=== PATIENT | male | born 1945 | race African-American/Black ===

== ENCOUNTER 2021-09-15 12:46 | Inpatient (IN) ==
[2021-09-15] MEDS ORDERED: SODIUM CHLORIDE 0.9% 500 ML IV STA (14:20)
[2021-09-15 16:28] LABS: Bacteria,Urine Many /HPF (Few); Bilirubin,Urine Negative (Negative); Blood, Urine Large mg/dL (Negative); Glucose,Urine (UA) Negative (Negative); Ketones,Urine Negative (Negative); Mucus,Urine Many /LPF (Occasional); Nitrite,Urine Negative (Negative); Protein,Urine >=500 MG/DL; RBC,Urine 479 /HPF (0-4); Urine Appearance CLOUDY (Clear); Urine Color Yellow (Yellow); Urine Specific Gravity 1.005 (1.001-1.035); Urine Urobilinogen < 2.0 EU/DL (<2.0)
[2021-09-15 16:56] LABS: Basophils % 0.1 % (0.0-0.8); Hematocrit 35.5 VOL% (42.0-52.0); Hemoglobin 12.2 GM/DL (14.0-18.0); Immature Granulocytes % 0.8 %; Immature Granulocytes Absolute 0.11 #; Mean Corpuscular HGB Conc 34.4 GM/DL (32-36); Mean Corpuscular Volume 81.1 FL (87-102); Monocytes % 9.9 % (1.7-12.7); NRBC # 0.05 10*3/uL; Neutrophils % 82.2 % (38.7-73.9); Platelet Count 109 T/CUMM (130-400); Red Blood Count 4.38 MC/CUMM (3.8-5.5); Red Cell Distribution Width 20.7 % (9.3-17.3); White Blood Count 13.8 T/CUMM (4-12)
[2021-09-15 17:04] LABS: INR 1.4; PT Patient Result 15.5 SECS (10.5-12.0)
[2021-09-15] MEDS ORDERED: PIPERACILLIN/TAZOBACTAM 3,375 MG in SODIUM CHLORIDE 0.9% 100 ML IV STA (17:08)
[2021-09-15] MEDS ORDERED: GLUCAGON 1 MG VIAL IM PRN (19:50)
[2021-09-15] MEDS ORDERED: ACETAMINOPHEN 325 MG TABLET PO PRN (19:55)
[2021-09-15] MEDS ORDERED: ONDANSETRON 4 MG/2 ML VIAL IV PRN (19:55)
[2021-09-15] MEDS ORDERED: hydrALAZINE 20 MG/1 ML VIAL IV PRN (19:55)
[2021-09-15] MEDS ORDERED: DEXTROSE 10% 250 ML BAG IV PRN (20:14)
[2021-09-15 20:16] LABS: Albumin 2.2 G/DL (3.4-5.0); Bilirubin,Total 7.9 MG/DL (0.20-1.00); Calcium 7.2 MG/DL (8.5-10.1); Osmolality,Calculated 278.2 MOS/KG (273-304); Thyroid Stimulating Hormone 0.79 uIU/ml (0.358-3.74); Total Protein 7.3 G/DL (6.4-8.2)
[2021-09-15] MEDS: INSULIN LISPRO 100 UNIT/ML SUBCUT SCH (20:24)
[2021-09-15 20:35] LABS: Potassium 6.4 MMOL/L (3.5-5.1)
[2021-09-15] MEDS ORDERED: INSULIN REGULAR 10 UNIT, CALCIUM GLUCONATE 1,000 MG in DEXTROSE 10% 250 ML IV ONE (20:47)
[2021-09-15] MEDS ORDERED: SODIUM CHLORIDE 0.9% 1,000 ML IV STA ×2 (20:49→20:51)
[2021-09-15] MEDS ORDERED: SODIUM POLYSTYRENE SULFATE 15 GM/60 ML BOTTLE PO STA (20:54)
[2021-09-15] MEDS ORDERED: SODIUM BICARBONATE 50 MEQ/50 ML VIAL IV STA (20:58)
[2021-09-15] MEDS ORDERED: DOPamine 800 MG/250 ML PREMIX IV ONE (22:09)
[2021-09-15] MEDS ORDERED: DOPamine 800 MG/250 ML PREMIX IV PRN (22:10)
[2021-09-15 22:20] LABS: Hepatitis B Surface Ag Quant < 0.10 Index; Hepatitis B Surface Ag Result Non-Reactive (NonReactive); Hepatitis C Virus Ab Quant 0.05 Index; Hepatitis C Virus Ab Result Non-Reactive (NonReactive)
[2021-09-15 22:27] LABS: ABG Base Excess -23.4 MMOL/L (-2.5-2.5); ABG HCO3 7.9 MMOL/L (20-26); ABG Oxygen Saturation 98.2 % (95-100); ABG TCO2 3.9 MMOL/L (23-27)
[2021-09-15 22:31] LABS: ABG PCO2 10.9 MM HG (35-48); ABG PH 7.191 (7.35-7.45)
[2021-09-15] MEDS ORDERED: SODIUM BICARB INJ 150 MEQ in DEXTROSE 5% 850 ML IV SCH (23:30)
[2021-09-15] MEDS ORDERED: SODIUM BICARBONATE 50 MEQ/50 ML VIAL IV ONE (23:39)
[2021-09-15] MEDS: TAMSULOSIN 0.4 MG CAPSULE PO SCH (23:59)
[2021-09-16] MEDS ORDERED: VANCOMYCIN INJ 1,250 MG in SODIUM CHLORIDE 0.9% 250 ML IV ONE
[2021-09-16] MEDS: HYDROCORTISONE 100 MG VIAL IV SCH ×3 (00:19→15:18)
[2021-09-16] MEDS ORDERED: NOREPINEPHRINE 4 MG/4 ML VIAL IV ONE (00:21)
[2021-09-16] MEDS: NOREPINEPHRINE 8 MG in SODIUM CHLORIDE 0.9% 242 ML IV PRN ×2 (00:30→20:00)
[2021-09-16 03:13] LABS: Basophils % 0.1 % (0.0-0.8); Eosinophils % 0.1 % (0.00-10.9); Hemoglobin 11.6 GM/DL (14.0-18.0); Immature Granulocytes % 1.1 %; Immature Granulocytes Absolute 0.17 #; Lymphocytes # 1.4 10*3/uL (1.4-4.0); Lymphocytes % 9.3 % (21.2-54.2); Mean Corpuscular HGB Conc 35.2 GM/DL (32-36); Mean Corpuscular Volume 81.3 FL (87-102); Monocytes % 12.5 % (1.7-12.7); NRBC # 0.08 10*3/uL; Neutrophils % 76.9 % (38.7-73.9); Red Blood Count 4.06 MC/CUMM (3.8-5.5); Red Cell Distribution Width 20.5 % (9.3-17.3); White Blood Count 15.4 T/CUMM (4-12)
[2021-09-16 03:14] LABS: Platelet Count 80 T/CUMM (130-400)
[2021-09-16 03:31] LABS: Albumin 1.9 G/DL (3.4-5.0); Bilirubin,Total 7.4 MG/DL (0.20-1.00); Calcium 6.8 MG/DL (8.5-10.1); Osmolality,Calculated 289.4 MOS/KG (273-304); Potassium 5.3 MMOL/L (3.5-5.1); Risk Ratio 13.14; Total Protein 6.6 G/DL (6.4-8.2); VLDL Cholesterol 40.4 MG/DL
[2021-09-16 03:47] LABS: Platelet Estimate Decreased
[2021-09-16] MEDS ORDERED: PIPERACILLIN/TAZOBACTAM 3,375 MG in SODIUM CHLORIDE 0.9% 100 ML IV SCH ×2 (04:00→05:00)
[2021-09-16] MEDS: INSULIN LISPRO 100 UNIT/ML SUBCUT SCH ×3 (07:33→16:49)
[2021-09-16] MEDS: PANTOPRAZOLE 40 MG TABLET PO SCH (10:29)
[2021-09-16] MEDS: SODIUM BICARB INJ 150 MEQ in DEXTROSE 5% 1,000 ML IV SCH ×3 (10:38→23:32)
[2021-09-16 10:53] LABS: ABG Base Excess -16.4 MMOL/L (-2.5-2.5); ABG HCO3 12.2 MMOL/L (20-26); ABG Oxygen Saturation 98.6 % (95-100); ABG PH 7.351 (7.35-7.45); ABG TCO2 6.9 MMOL/L (23-27)
[2021-09-16] MEDS: MEROPENEM 500 MG in SODIUM CHLORIDE 0.9% 100 ML IV SCH (11:15)
[2021-09-16] MEDS: LACOSAMIDE INJ 150 MG in SODIUM CHLORIDE 0.9% 50 ML IV SCH ×2 (11:47→21:55)
[2021-09-16] MEDS ORDERED: LEVOFLOXACIN INJ 750 MG/150 ML PREMIX IV ONE (12:00)
[2021-09-16 13:10] LABS: Calcium 6.1 MG/DL (8.5-10.1); Osmolality,Calculated 300.1 MOS/KG (273-304); Potassium 4.9 MMOL/L (3.5-5.1)
[2021-09-16] MEDS: TAMSULOSIN 0.4 MG CAPSULE PO SCH (21:55)
[2021-09-16] MEDS: ENOXAPARIN 80 MG/0.8 ML SYRINGE SUBCUT SCH (21:55)
[2021-09-16] MEDS ORDERED: SODIUM CHLORIDE 0.9% 500 ML IV ONE (23:20)
[2021-09-17] MEDS: INSULIN LISPRO 100 UNIT/ML SUBCUT SCH ×5 (00:57→21:24)
[2021-09-17] MEDS: HYDROCORTISONE 100 MG VIAL IV SCH ×4 (00:57→23:20)
[2021-09-17] MEDS ORDERED: INSULIN REGULAR 100 UNIT/ML IV SCH (01:30)
[2021-09-17] MEDS: ALBUMIN 25% 12.5 GM/50 ML VIAL IV SCH ×3 (02:01→17:10)
[2021-09-17 02:20] LABS: Albumin 1.6 G/DL (3.4-5.0); Bilirubin,Total 6.6 MG/DL (0.20-1.00); Calcium 6.3 MG/DL (8.5-10.1); Osmolality,Calculated 294.1 MOS/KG (273-304); Potassium 4.8 MMOL/L (3.5-5.1); Total Protein 5.8 G/DL (6.4-8.2)
[2021-09-17] MEDS ORDERED: CALCIUM GLUCONATE 1,000 MG in SODIUM CHLORIDE 0.9% 100 ML IV ONE (02:28)
[2021-09-17 02:35] LABS: Basophils % 0.1 % (0.0-0.8); Hematocrit 28.3 VOL% (42.0-52.0); Hemoglobin 10.3 GM/DL (14.0-18.0); Immature Granulocytes % 0.8 %; Immature Granulocytes Absolute 0.09 #; Lymphocytes # 0.7 10*3/uL (1.4-4.0); Lymphocytes % 6.3 % (21.2-54.2); Mean Corpuscular HGB Conc 36.4 GM/DL (32-36); Mean Corpuscular Volume 77.5 FL (87-102); Monocytes % 7.6 % (1.7-12.7); NRBC # 0.05 10*3/uL; Neutrophils % 85.2 % (38.7-73.9); Platelet Count 60 T/CUMM (130-400); Red Blood Count 3.65 MC/CUMM (3.8-5.5); Red Cell Distribution Width 19.9 % (9.3-17.3); White Blood Count 11.2 T/CUMM (4-12)
[2021-09-17] MEDS ORDERED: MAGNESIUM SULF RIDER 4 GM/100 ML PREMIX IV PRN (02:47)
[2021-09-17 03:07] LABS: Band Neutrophils 3 % (0-10); Lymphocytes 8 % (20-55); Nucleated Red Blood Cells 1 (0-5); Platelet Estimate Decreased; Segmented Neutrophils 86 % (50-85); Total Cells Counted 100
[2021-09-17 03:08] LABS: Hypochromia Slight; Microcytosis Slight
[2021-09-17] MEDS: MAGNESIUM SULF RIDER 2 GM/50 ML PREMIX IV PRN (03:08)
[2021-09-17] MEDS: SODIUM BICARB INJ 150 MEQ in DEXTROSE 5% 1,000 ML IV SCH ×3 (07:39→23:18)
[2021-09-17] MEDS ORDERED: NOREPINEPHRINE 8 MG in SODIUM CHLORIDE 0.9% 242 ML IV PRN (08:00)
[2021-09-17] MEDS: LACOSAMIDE INJ 150 MG in SODIUM CHLORIDE 0.9% 50 ML IV SCH ×2 (08:55→22:22)
[2021-09-17] MEDS: MEROPENEM 500 MG in SODIUM CHLORIDE 0.9% 100 ML IV SCH (08:56)
[2021-09-17] MEDS: PANTOPRAZOLE 40 MG TABLET PO SCH (08:56)
[2021-09-17] MEDS: NOREPINEPHRINE 8 MG in SODIUM CHLORIDE 0.9% 242 ML IV PRN ×2 (10:58→21:22)
[2021-09-17] MEDS: INSULIN NPH 100 UNIT/ML SUBCUT SCH (16:21)
[2021-09-17] MEDS ORDERED: HEPARIN 10,000 UNIT/10 ML VIAL IV ONE (18:00)
[2021-09-17] MEDS: TAMSULOSIN 0.4 MG CAPSULE PO SCH (21:23)
[2021-09-17] MEDS: ENOXAPARIN 80 MG/0.8 ML SYRINGE SUBCUT SCH (21:23)
[2021-09-18 03:57] LABS: Basophils % 0.1 % (0.0-0.8); Hematocrit 25.2 VOL% (42.0-52.0); Hemoglobin 9.3 GM/DL (14.0-18.0); Immature Granulocytes % 1.5 %; Immature Granulocytes Absolute 0.18 #; Lymphocytes # 0.9 10*3/uL (1.4-4.0); Lymphocytes % 7.5 % (21.2-54.2); Mean Corpuscular HGB Conc 36.9 GM/DL (32-36); Mean Corpuscular Volume 76.1 FL (87-102); Monocytes % 6.4 % (1.7-12.7); NRBC # 0.02 10*3/uL; Neutrophils % 84.5 % (38.7-73.9); Red Blood Count 3.31 MC/CUMM (3.8-5.5); Red Cell Distribution Width 19.2 % (9.3-17.3); White Blood Count 12.3 T/CUMM (4-12)
[2021-09-18 04:10] LABS: Platelet Count 40 T/CUMM (130-400)
[2021-09-18 04:15] LABS: Acanthocytes Few; Band Neutrophils 1 % (0-10); Eosinophils 1 % (0-10); Hypochromia 1+; Lymphocytes 7 % (20-55); Microcytosis 1+; Ovalocytes Slight; Segmented Neutrophils 87 % (50-85); Target Cells Few; Total Cells Counted 100
[2021-09-18 04:20] LABS: Albumin 1.9 G/DL (3.4-5.0); Bilirubin,Total 7.1 MG/DL (0.20-1.00); Calcium 6.5 MG/DL (8.5-10.1); Total Protein 5.7 G/DL (6.4-8.2)
[2021-09-18 04:27] LABS: Platelet Estimate Decreased
[2021-09-18] MEDS: SODIUM BICARB INJ 150 MEQ in DEXTROSE 5% 1,000 ML IV SCH ×2 (07:14→22:16)
[2021-09-18] MEDS: INSULIN NPH 100 UNIT/ML SUBCUT SCH (08:56)
[2021-09-18] MEDS ORDERED: LEVOFLOXACIN INJ 500 MG/100 ML PREMIX IV SCH (09:00)
[2021-09-18] MEDS: INSULIN LISPRO 100 UNIT/ML SUBCUT SCH ×4 (09:13→22:15)
[2021-09-18] MEDS: HYDROCORTISONE 100 MG VIAL IV SCH ×3 (09:13→23:56)
[2021-09-18] MEDS: PANTOPRAZOLE 40 MG TABLET PO SCH (09:13)
[2021-09-18] MEDS: LACOSAMIDE INJ 150 MG in SODIUM CHLORIDE 0.9% 50 ML IV SCH ×2 (09:14→22:34)
[2021-09-18] MEDS: NOREPINEPHRINE 8 MG in SODIUM CHLORIDE 0.9% 242 ML IV PRN ×2 (09:35→20:26)
[2021-09-18] MEDS: AMPICILLIN INJ 1,000 MG in SODIUM CHLORIDE 0.9% 100 ML IV SCH (11:54)
[2021-09-18] MEDS ORDERED: GENTAMICIN INJ 120 MG/100 ML PREMIX IV SCH (12:00)
[2021-09-18] MEDS ORDERED: DIGOXIN 0.5 MG/2 ML AMP IV ONE ×2 (17:46→18:15)
[2021-09-18] MEDS: TAMSULOSIN 0.4 MG CAPSULE PO SCH (22:15)
[2021-09-18] MEDS: ENOXAPARIN 80 MG/0.8 ML SYRINGE SUBCUT SCH (22:34)
[2021-09-18 22:36] LABS: ABG Base Excess -0.6 MMOL/L (-2.5-2.5); ABG Oxygen Saturation 99.3 % (95-100); ABG PH 7.224 (7.35-7.45); ABG TCO2 26.6 MMOL/L (23-27)
[2021-09-18 22:38] LABS: ABG PCO2 69.1 MM HG (35-48)
[2021-09-18 22:53] LABS: Albumin 1.8 G/DL (3.4-5.0); Bilirubin,Total 7.3 MG/DL (0.20-1.00); Calcium 6.6 MG/DL (8.5-10.1); Osmolality,Calculated 293.7 MOS/KG (273-304); Potassium 4.2 MMOL/L (3.5-5.1); Total Protein 5.7 G/DL (6.4-8.2)
[2021-09-18] MEDS: MAGNESIUM SULF RIDER 2 GM/50 ML PREMIX IV PRN (23:12)
[2021-09-18] MEDS ORDERED: MAGNESIUM SULF RIDER 2 GM/50 ML PREMIX IV ONE (23:28)
[2021-09-19 00:07] LABS: ABG Base Excess 0.9 MMOL/L (-2.5-2.5); ABG HCO3 27.5 MMOL/L (20-26); ABG Oxygen Saturation 94.4 % (95-100); ABG PCO2 54.3 MM HG (35-48); ABG PH 7.323 (7.35-7.45); ABG PO2 81.8 MM HG (80-95); ABG TCO2 29.2 MMOL/L (23-27)
[2021-09-19] MEDS: NOREPINEPHRINE 16 MG in SODIUM CHLORIDE 0.9% 234 ML IV PRN ×5 (01:58→21:11)
[2021-09-19 03:44] LABS: ABG Base Excess 1.5 MMOL/L (-2.5-2.5); ABG HCO3 25.7 MMOL/L (20-26); ABG Oxygen Saturation 93.5 % (95-100); ABG PH 7.391 (7.35-7.45); ABG PO2 71.4 MM HG (80-95); ABG TCO2 24.3 MMOL/L (23-27)
[2021-09-19 03:53] LABS: Basophils % 0.1 % (0.0-0.8); Hemoglobin 9.9 GM/DL (14.0-18.0); Immature Granulocytes Absolute 0.22 #; Lymphocytes # 0.8 10*3/uL (1.4-4.0); Lymphocytes % 7.4 % (21.2-54.2); Mean Corpuscular HGB Conc 35.4 GM/DL (32-36); Monocytes % 6.9 % (1.7-12.7); NRBC # 0.04 10*3/uL; Neutrophils % 83.6 % (38.7-73.9); Platelet Count 43 T/CUMM (130-400); Red Blood Count 3.59 MC/CUMM (3.8-5.5); Red Cell Distribution Width 20.3 % (9.3-17.3)
[2021-09-19 04:11] LABS: Band Neutrophils 3 % (0-10); Hypochromia Slight; Lymphocytes 9 % (20-55); Platelet Estimate Decreased; Segmented Neutrophils 85 % (50-85); Total Cells Counted 100
[2021-09-19 04:12] LABS: Microcytosis Slight; Target Cells Few
[2021-09-19] MEDS: SODIUM BICARB INJ 150 MEQ in DEXTROSE 5% 1,000 ML IV SCH ×2 (06:23→13:02)
[2021-09-19 06:47] LABS: Albumin 1.6 G/DL (3.4-5.0); Bilirubin,Total 7.4 MG/DL (0.20-1.00); Calcium 6.9 MG/DL (8.5-10.1); Osmolality,Calculated 282.4 MOS/KG (273-304); Total Protein 8.6 G/DL (6.4-8.2)
[2021-09-19 06:58] LABS: Potassium 6.2 MMOL/L (3.5-5.1)
[2021-09-19] MEDS: INSULIN NPH 100 UNIT/ML SUBCUT SCH (07:22)
[2021-09-19] MEDS: INSULIN LISPRO 100 UNIT/ML SUBCUT SCH ×4 (07:22→21:36)
[2021-09-19] MEDS: PANTOPRAZOLE 40 MG TABLET PO SCH (08:11)
[2021-09-19] MEDS: HYDROCORTISONE 100 MG VIAL IV SCH ×3 (08:11→23:59)
[2021-09-19] MEDS: LACOSAMIDE INJ 150 MG in SODIUM CHLORIDE 0.9% 50 ML IV SCH (09:21)
[2021-09-19] MEDS: PANTOPRAZOLE 40 MG VIAL IV SCH (09:39)
[2021-09-19] MEDS ORDERED: HEPARIN 10,000 UNIT/10 ML VIAL IV PRN (10:45)
[2021-09-19] MEDS ORDERED: ALTEPLASE 2 MG VIAL INTRACATH ONE (11:00)
[2021-09-19] MEDS ORDERED: ETOMIDATE 20 MG/10 ML VIAL IV ONE ×2 (12:13→12:23)
[2021-09-19] MEDS ORDERED: ROCURONIUM 100 MG/10 ML VIAL IV ONE ×2 (12:13→12:24)
[2021-09-19] MEDS: PHENYLEPHRINE DRIP 40 MG/250 ML PREMIX IV PRN ×2 (12:30→15:45)
[2021-09-19] MEDS ORDERED: PHENYLEPHRINE DRIP 40 MG/250 ML PREMIX IV ONE (12:34)
[2021-09-19] MEDS: AMPICILLIN INJ 1,000 MG in SODIUM CHLORIDE 0.9% 100 ML IV SCH (12:46)
[2021-09-19 13:04] LABS: ABG Base Excess -4.3 MMOL/L (-2.5-2.5); ABG HCO3 20.1 MMOL/L (20-26); ABG Oxygen Saturation 99.1 % (95-100); ABG PH 7.389 (7.35-7.45); ABG PO2 201.6 MM HG (80-95); ABG TCO2 21.1 MMOL/L (23-27)
[2021-09-19] MEDS ORDERED: DIGOXIN 0.5 MG/2 ML AMP IV ONE (14:24)
[2021-09-19] MEDS ORDERED: NOREPINEPHRINE 4 MG/4 ML VIAL IV ONE (14:27)
[2021-09-19] MEDS ORDERED: INSULIN REGULAR 10 UNIT, CALCIUM GLUCONATE 1,000 MG in DEXTROSE 10% 250 ML IV ONE (14:30)
[2021-09-19] MEDS ORDERED: SODIUM BICARBONATE 50 MEQ/50 ML VIAL IV ONE ×3 (14:31→18:25)
[2021-09-19] MEDS: MENTHOL/ZINC OXIDE OINT 71 GM JAR TOP SCH ×2 (14:41→21:35)
[2021-09-19] MEDS ORDERED: SODIUM BICARB INJ 50 MEQ in DEXTROSE 5% 1,000 ML IV SCH (15:00)
[2021-09-19] MEDS ORDERED: POTASSIUM CHLORIDE 20 MEQ TABLET PO ONE (15:56)
[2021-09-19 18:28] LABS: ABG Base Excess -9.9 MMOL/L (-2.5-2.5); ABG HCO3 16.5 MMOL/L (20-26); ABG Oxygen Saturation 98.1 % (95-100); ABG PCO2 32.6 MM HG (35-48); ABG PH 7.293 (7.35-7.45); ABG TCO2 14.7 MMOL/L (23-27)
[2021-09-19] MEDS ORDERED: VANCOMYCIN INJ 1,000 MG in SODIUM CHLORIDE 0.9% 250 ML IV SCH (18:30)
[2021-09-19] MEDS ORDERED: MEROPENEM 500 MG in SODIUM CHLORIDE 0.9% 100 ML IV SCH (18:30)
[2021-09-19] MEDS: ALBUMIN 5% 25 GM/500 ML VIAL IV SCH (18:42)
[2021-09-19] MEDS ORDERED: VANCOMYCIN INJ 750 MG in SODIUM CHLORIDE 0.9% 250 ML IV PRN (18:45)
[2021-09-19 18:48] LABS: Basophils % 0.1 % (0.0-0.8); Hematocrit 23.8 VOL% (42.0-52.0); Hemoglobin 8.5 GM/DL (14.0-18.0); Immature Granulocytes % 2.3 %; Immature Granulocytes Absolute 0.28 #; Lymphocytes % 7.9 % (21.2-54.2); Mean Corpuscular HGB Conc 35.7 GM/DL (32-36); Mean Corpuscular Volume 79.6 FL (87-102); Monocytes % 6.3 % (1.7-12.7); NRBC # 0.14 10*3/uL; Neutrophils % 83.4 % (38.7-73.9); Red Blood Count 2.99 MC/CUMM (3.8-5.5); Red Cell Distribution Width 20.5 % (9.3-17.3); White Blood Count 12.3 T/CUMM (4-12)
[2021-09-19] MEDS: PHENYLEPHRINE INJ 160 MG in SODIUM CHLORIDE 0.9% 234 ML IV PRN (18:50)
[2021-09-19 18:57] LABS: Platelet Count 30 T/CUMM (130-400)
[2021-09-19 19:04] LABS: Calcium 6.7 MG/DL (8.5-10.1); Osmolality,Calculated 290.3 MOS/KG (273-304); Potassium 4.1 MMOL/L (3.5-5.1)
[2021-09-19] MEDS ORDERED: SODIUM CHLORIDE 0.9% 1,000 ML IV PRN (19:40)
[2021-09-19 19:58] LABS: Band Neutrophils 3 % (0-10); Lymphocytes 12 % (20-55); Metamyelocytes 2 %; Nucleated Red Blood Cells 47 (0-5); Segmented Neutrophils 79 % (50-85); Target Cells 1+; Total Cells Counted 100
[2021-09-19 19:59] LABS: Anisocytosis Slight; Burr Cells 1+; Ovalocytes Slight; Schistocytes Slight
[2021-09-19 20:00] LABS: Platelet Estimate Decreased
[2021-09-19] MEDS ORDERED: VANCOMYCIN INJ 2,250 MG in SODIUM CHLORIDE 0.9% 500 ML IV ONE (21:00)
[2021-09-19] MEDS ORDERED: APIXABAN 2.5 MG TABLET PO SCH (21:00)
[2021-09-19 21:34] LABS: INR 2.1
[2021-09-19] MEDS: TAMSULOSIN 0.4 MG CAPSULE PO SCH (21:37)
[2021-09-19 21:41] LABS: PT Patient Result 22.1 SECS (10.5-12.0)
[2021-09-19 21:42] LABS: Partial Thromboplastin Time > 211.8 SECS (23.8-32.1)
[2021-09-20] MEDS: NOREPINEPHRINE 16 MG in SODIUM CHLORIDE 0.9% 234 ML IV PRN ×2 (00:06→03:44)
[2021-09-20] MEDS: ALBUMIN 5% 25 GM/500 ML VIAL IV SCH (02:26)
[2021-09-20] MEDS: SODIUM BICARB INJ 150 MEQ in DEXTROSE 5% 1,000 ML IV SCH ×2 (04:36→07:45)
[2021-09-20] MEDS: PHENYLEPHRINE INJ 160 MG in SODIUM CHLORIDE 0.9% 234 ML IV PRN (04:47)
[2021-09-20] MEDS ORDERED: VASOPRESSIN 100 UNITS in SODIUM CHLORIDE 0.9% 95 ML IV PRN (05:52)
[2021-09-20 05:57] LABS: ABG Base Excess -14.9 MMOL/L (-2.5-2.5); ABG HCO3 12.6 MMOL/L (20-26); ABG Oxygen Saturation 97.9 % (95-100)
[2021-09-20 06:00] LABS: ABG PH 7.188 (7.35-7.45)
[2021-09-20 06:04] VITALS: BP 94/28
[2021-09-20 06:17] LABS: Basophils % 0.1 % (0.0-0.8); Immature Granulocytes % 1.1 %; Immature Granulocytes Absolute 0.08 #; Lymphocytes # 0.7 10*3/uL (1.4-4.0); Lymphocytes % 9.6 % (21.2-54.2); Mean Corpuscular HGB Conc 32.3 GM/DL (32-36); Mean Corpuscular Volume 86.5 FL (87-102); Monocytes % 3.6 % (1.7-12.7); NRBC # 0.18 10*3/uL; Neutrophils % 85.6 % (38.7-73.9); Platelet Count 42 T/CUMM (130-400); Red Blood Count 1.93 MC/CUMM (3.8-5.5); Red Cell Distribution Width 21.5 % (9.3-17.3); White Blood Count 7.2 T/CUMM (4-12)
[2021-09-20 06:22] LABS: Hematocrit 16.7 VOL% (42.0-52.0); Hemoglobin 5.4 GM/DL (14.0-18.0)
[2021-09-20] MEDS ORDERED: SODIUM CHLORIDE 0.9% 1,000 ML IV PRN (06:27)
[2021-09-20] MEDS ORDERED: SODIUM BICARBONATE 50 MEQ/50 ML VIAL IV ONE (06:28)
[2021-09-20 06:31] LABS: Albumin 1.9 G/DL (3.4-5.0); Bilirubin,Total 5.6 MG/DL (0.20-1.00); Osmolality,Calculated 283.4 MOS/KG (273-304); Potassium 4.8 MMOL/L (3.5-5.1); Total Protein 4.5 G/DL (6.4-8.2)
[2021-09-20 06:37] LABS: Band Neutrophils 6 % (0-10); Lymphocytes 12 % (20-55); Metamyelocytes 4 %; Myelocytes 1 %; Nucleated Red Blood Cells 3 (0-5); Segmented Neutrophils 69 % (50-85); Total Cells Counted 100
[2021-09-20 06:38] LABS: Acanthocytes Few; Hypochromia 1+; Microcytosis 1+; Pappenheimer Bodies Slight; Target Cells Slight
[2021-09-20 06:39] LABS: Anisocytosis 1+; Burr Cells Few; Platelet Estimate Decreased; Poikilocytosis 1+
[2021-09-20] MEDS ORDERED: DEXTROSE 50% 25 GM/50 ML SYRINGE IV ONE (06:49)
[2021-09-20] MEDS: INSULIN LISPRO 100 UNIT/ML SUBCUT SCH (07:46)
[2021-09-20] MEDS: INSULIN NPH 100 UNIT/ML SUBCUT SCH (07:46)
[2021-09-20] MEDS: MENTHOL/ZINC OXIDE OINT 71 GM JAR TOP SCH (08:44)
[2021-09-20] MEDS: HYDROCORTISONE 100 MG VIAL IV SCH (08:44)
[2021-09-20] MEDS: PANTOPRAZOLE 40 MG VIAL IV SCH (08:45)
== END 2021-09-20 09:24 | disposition expired | DRG 698 ==
LOC: EDBD → EDUNIT# → N.ED 12:46 → N.EDINP 19:50 → SUATTDRO 19:50 → N.ICU 09-16 19:19
PROVIDERS: ADMIT Hospitalist; ATTEND Internal Medicine